=== PATIENT | male | born 1945 | race Two or more races ===

== ENCOUNTER 2023-03-01 13:57 | Outpatient (CLI) | payer OTHER | END 2023-03-01 13:58 | disposition home or self-care (01) | LOC: BICCT 13:57 | PROVIDERS: ATTEND Family Medicine | DX: Z12.2 Encounter for screening for malignant neoplasm of respiratory organs (principal); Z87.891 Personal history of nicotine dependence | CPT/HCPCS: 71271 ==

== ENCOUNTER 2025-05-01 09:30 | Outpatient (CLI) | payer OTHER | END 2025-05-01 09:31 | disposition home or self-care (01) | LOC: BICCT 09:30 | PROVIDERS: ATTEND Family Medicine | DX: Z12.2 Encounter for screening for malignant neoplasm of respiratory organs (principal); R91.1 Solitary pulmonary nodule; Z87.891 Personal history of nicotine dependence | CPT/HCPCS: 71271 ==